=== PATIENT | male | born 1990 | race Caucasian/White ===

== ENCOUNTER 2021-12-16 10:06 | Emergency (ER) | payer MEDICAID ==
[~2021-12-16] VITALS: Ht 170.2 cm; Wt 81.6 kg
[2021-12-16 11:26] VITALS: BP 122/86
--- NOTE | 2021-12-16 11:31 | NUR ---
C/O 11/20 R ANKLE PAIN S/P FALL X TODAY.
[2021-12-16] MEDS ORDERED: IBUP-2218 PO (13:08)
--- NOTE | 2021-12-16 14:04 | NUR ---
PT PROVIDED WITH CRUTCHES. RETURNED SAFE DEMONSTRATION.
--- NOTE | 2021-12-16 14:04 | NUR ---
SHORT LEG POSTERIOR AND ANKLE STIRRUP APPLIED TO R LOWER LEG. PT TOLERATED SPLINT. WRAPPED WITH X 3 ADALBERTO WRAP AND PT PROVIDED WITH 1 ADALBERTO WRAP TO TAKE HOME. + CMS.
[2021-12-16 14:46] VITALS: BP 123/75
== END 2021-12-16 14:46 | disposition home or self-care (01) ==
LOC: MED 10:06
DX: S93.401A Sprain of unspecified ligament of right ankle, initial encounter (principal); W18.30XA Fall on same level, unspecified, initial encounter; Y93.89 Activity, other specified; Y92.89 Other specified places as the place of occurrence of the external cause; Y99.8 Other external cause status
CPT/HCPCS: 29515; 73610; 73630; 99284

== ENCOUNTER 2023-12-01 07:30 | Emergency (ER) | payer MEDICAID ==
[~2023-12-01] VITALS: Ht 170.2 cm; Wt 88.9 kg
[~2023-12-01 07:30] MED LIST: IBUP-2218 PO
[2023-12-01 07:34] VITALS: BP 133/89; PULSE 87; RESP 16; TEMP 97.1; O2SAT 97
[2023-12-01] MEDS ORDERED: ACET500T99 PO (10:04)
[2023-12-01] MEDS ORDERED: IBUP-2218 PO (10:04)
== END 2023-12-01 10:25 | disposition home or self-care (01) ==
LOC: MED 07:43
DX: M25.522 Pain in left elbow (principal); Z79.899 Other long term (current) drug therapy
CPT/HCPCS: 29105; 73080; 99283